=== PATIENT | male | born 1940 | race African-American/Black ===

== ENCOUNTER 2024-06-26 20:37 | Inpatient (IN) | payer OTHER, MEDICAID ==
[~2024-06-26] VITALS: Ht 188 cm; Wt 58.5 kg
[~2024-06-26 20:37] MED LIST: AMLO10TA80 MT; APIX2.5T MT; ASPI-1497 MT; HYDR100T11 MT; LIP40 MT; METO25TA6 PO; P20 MT; PRED10TA MT; PRED5TAB MT
[2024-06-26 20:50] VITALS: O2SAT 97
[2024-06-26 21:52] LABS: BASOPHILS % 1.6 % (0.0-2.0); EOSINOPHILS % 6.2 % (0.0-5.0); HEMATOCRIT. 36.2 % (42.0-52.0); HEMOGLOBIN. 12.2 g/dL (14.0-18.0); LYMPHOCYTES % 23.1 % (20.0-50.0); MEAN CORPUSCULAR HEMOGLOBIN 29.3 pg (28.0-32.0); MEAN CORPUSCULAR HGB CONC 33.7 g/dL (31.0-37.0); MEAN CORPUSCULAR VOLUME 86.8 fL (80.0-94.0); MEAN PLATELET VOLUME 8.9 fl (7.4-10.4); MONOCYTES % 11.2 % (2.0-8.0); NEUTROPHILS % 57.9 % (40.0-76.0); PLATELET 128 x1000/uL (130-400); RED BLOOD CELL COUNT 4.17 mill/uL (4.7-6.1); RED CELL DISTRIBUTION WIDTH 16.3 % (11.6-14.6); WHITE BLOOD COUNT 4.4 x1000/uL (4.5-11.0)
[2024-06-26] MEDS: HYDRALAZINE 20MG/ML VIAL IV NR (21:52)
[2024-06-26 21:55] LABS: POTASSIUM 4.2 mEq/L (3.5-5.1)
[2024-06-26 21:56] LABS: CALCIUM 9.1 mg/dL (8.7-10.4)
[2024-06-26 22:02] LABS: CREATININE 1.5 mg/dL (0.6-1.3)
[2024-06-26] MEDS: LABETALOL 5MG/ML 4ML INJ IV NR (22:14)
[2024-06-26] MEDS ORDERED: ONDANSETRON HCL 4MG/2ML INJ IV PRN (23:00)
[2024-06-26] MEDS ORDERED: ENOXAPARIN 40MG/0.4ML SYR SUBCUT SCH (23:00)
[2024-06-26] MEDS ORDERED: IPRATROPIUM/ALBUTEROL 0.5-3(2.5)MG/3ML NEB NEB PRN (23:00)
[2024-06-26] MEDS ORDERED: ACETAMINOPHEN 325MG TABLET PO PRN (23:00)
[2024-06-26] MEDS ORDERED: ZOLPIDEM TARTRATE 5MG TABLET PO PRN (23:00)
[2024-06-26] MEDS: AMLODIPINE 5MG TABLET PO SCH (23:34)
[2024-06-26] MEDS: METOPROLOL TARTRATE 25MG TABLET PO SCH (23:34)
[2024-06-27] MEDS: APIXABAN 2.5 MG TABLET PO SCH (00:43)
[2024-06-27] MEDS: CLONIDINE 0.1MG TABLET PO PRN (00:53)
[2024-06-27 09:00] VITALS: BP_SYST 140; BP_SYST 141; BP_DIAS 91; PULSE 62; PULSE 92; RESP 18; TEMP 36.78072; TEMP 36.8072; O2SAT 100
[2024-06-27] MEDS: ASPIRIN 81MG EC TABLET PO SCH (09:35)
[2024-06-27] MEDS: ATORVASTATIN CALCIUM 40MG TABLET PO SCH (09:38)
[2024-06-27 12:00] VITALS: BP 157/98; PULSE 68; RESP 18; TEMP 36.16956; O2SAT 100
[2024-06-27 12:18] LABS: BASOPHILS % 0.8 % (0.0-2.0); EOSINOPHILS % 4.4 % (0.0-5.0); HEMATOCRIT. 35.3 % (42.0-52.0); HEMOGLOBIN. 11.5 g/dL (14.0-18.0); LYMPHOCYTES % 23.1 % (20.0-50.0); MEAN CORPUSCULAR HEMOGLOBIN 28.1 pg (28.0-32.0); MEAN CORPUSCULAR HGB CONC 32.5 g/dL (31.0-37.0); MEAN CORPUSCULAR VOLUME 86.3 fL (80.0-94.0); MEAN PLATELET VOLUME 8.9 fl (7.4-10.4); MONOCYTES % 8.3 % (2.0-8.0); NEUTROPHILS % 63.4 % (40.0-76.0); PLATELET 130 x1000/uL (130-400); RED BLOOD CELL COUNT 4.09 mill/uL (4.7-6.1); RED CELL DISTRIBUTION WIDTH 16.3 % (11.6-14.6); WHITE BLOOD COUNT 4.9 x1000/uL (4.5-11.0)
[2024-06-27 12:27] LABS: CHLORIDE 107 mEq/L (98-107); POTASSIUM 4.1 mEq/L (3.5-5.1); SODIUM 140 mEq/L (136-145)
[2024-06-27 12:28] LABS: CALCIUM 9.1 mg/dL (8.7-10.4); CARBON DIOXIDE 26 mEq/L (21-32)
[2024-06-27 12:33] LABS: CREATININE 1.3 mg/dL (0.6-1.3); GLUCOSE 119 mg/dL (70-105); UREA NITROGEN BLOOD 15 mg/dL (9-23)
[2024-06-27 12:36] LABS: CREATINE KINASE MB FRACTION 1.9 ng/mL (0.5-3.6); TROPONIN I HIGH SENSITIVITY 29 ng/L (3.0-53)
[2024-06-27 12:37] LABS: CREATINE KINASE 92 IU/L (46-171)
[2024-06-27 16:00] VITALS: BP 128/92; PULSE 78; RESP 20; TEMP 36.114; O2SAT 100
[2024-06-27 19:03] LABS: CREATINE KINASE MB FRACTION 2.6 ng/mL (0.5-3.6)
[2024-06-27 20:00] VITALS: BP 197/116; PULSE 83; RESP 16; TEMP 36.22512; O2SAT 100
[2024-06-28] VITALS: BP 173/107; PULSE 68; RESP 16; O2SAT 98
[2024-06-28] MEDS ORDERED: CLONIDINE 0.1MG TABLET PO PRN (03:00)
[2024-06-28] MEDS: CLONIDINE 0.1MG TABLET PO NR (03:04)
[2024-06-28 04:00] VITALS: BP 137/91; PULSE 68; RESP 20; TEMP 35.0028; O2SAT 99
[2024-06-28 07:52] LABS: EOSINOPHILS % 4.6 % (0.0-5.0); HEMATOCRIT. 35.2 % (42.0-52.0); HEMOGLOBIN. 11.5 g/dL (14.0-18.0); LYMPHOCYTES % 28.5 % (20.0-50.0); MEAN CORPUSCULAR HEMOGLOBIN 28.5 pg (28.0-32.0); MEAN CORPUSCULAR HGB CONC 32.7 g/dL (31.0-37.0); MEAN CORPUSCULAR VOLUME 87.4 fL (80.0-94.0); MEAN PLATELET VOLUME 9.3 fl (7.4-10.4); MONOCYTES % 7.6 % (2.0-8.0); NEUTROPHILS % 58.3 % (40.0-76.0); PLATELET 131 x1000/uL (130-400); RED BLOOD CELL COUNT 4.02 mill/uL (4.7-6.1); RED CELL DISTRIBUTION WIDTH 16.2 % (11.6-14.6); WHITE BLOOD COUNT 4.5 x1000/uL (4.5-11.0)
[2024-06-28 08:06] LABS: CARBON DIOXIDE 27 mEq/L (21-32); CHLORIDE 106 mEq/L (98-107); POTASSIUM 4.6 mEq/L (3.5-5.1); SODIUM 139 mEq/L (136-145)
[2024-06-28 08:07] LABS: CALCIUM 8.9 mg/dL (8.7-10.4)
[2024-06-28 08:10] LABS: TROPONIN I HIGH SENSITIVITY 25 ng/L (3.0-53)
[2024-06-28 08:11] LABS: CREATININE 1.4 mg/dL (0.6-1.3)
[2024-06-28 08:12] LABS: GLUCOSE 85 mg/dL (70-105); TRIGLYCERIDE 66 mg/dL (0-150); UREA NITROGEN BLOOD 23 mg/dL (9-23)
[2024-06-28 08:13] LABS: CHOLESTEROL 143 mg/dL (<200); LDL CHOLESTEROL 62 mg/dL (5-100)
[2024-06-28 08:14] LABS: HDL CHOLESTEROL 61 mg/dL (>55)
[2024-06-28 12:00] VITALS: BP 164/110; PULSE 70; RESP 18; TEMP 37.05852; O2SAT 99
[2024-06-28 16:00] VITALS: BP 147/87; PULSE 67; RESP 18; TEMP 37.00296; O2SAT 98
[2024-06-28 20:00] VITALS: BP 147/92; PULSE 65; RESP 20; TEMP 36.28068; O2SAT 99
[2024-06-29] VITALS: BP 145/90; PULSE 62; RESP 19; TEMP 36.3918; O2SAT 98
[2024-06-29 04:00] VITALS: BP 151/92; PULSE 72; RESP 20; TEMP 36.33624; O2SAT 98
[2024-06-29 08:00] VITALS: BP 148/100; PULSE 63; RESP 20; TEMP 36.05844; O2SAT 98
[2024-06-29 12:12] VITALS: BP 142/88; PULSE 63; RESP 18; TEMP 37.16964; O2SAT 98
[2024-06-29] MEDS ORDERED: AMLODIPINE 10MG TABLET PO SCH (12:45)
[2024-06-29 13:59] VITALS: BP 142/88; PULSE 63; TEMP 98.9
[2024-06-29 16:25] VITALS: BP 115/87; PULSE 64; RESP 18; TEMP 37.00296; O2SAT 97
[2024-06-29] MEDS ORDERED: CLONIDINE 0.3MG TABLET PO PRN (17:58)
[2024-06-29 18:17] LABS: BASOPHILS % 1.6 % (0.0-2.0); EOSINOPHILS % 5.9 % (0.0-5.0); HEMOGLOBIN. 11.5 g/dL (14.0-18.0); LYMPHOCYTES % 29.1 % (20.0-50.0); MEAN CORPUSCULAR HEMOGLOBIN 28.5 pg (28.0-32.0); MEAN CORPUSCULAR HGB CONC 32.8 g/dL (31.0-37.0); MEAN CORPUSCULAR VOLUME 86.8 fL (80.0-94.0); MEAN PLATELET VOLUME 9.6 fl (7.4-10.4); MONOCYTES % 9.7 % (2.0-8.0); NEUTROPHILS % 53.7 % (40.0-76.0); PLATELET 146 x1000/uL (130-400); POTASSIUM 4.2 mEq/L (3.5-5.1); RED BLOOD CELL COUNT 4.03 mill/uL (4.7-6.1); RED CELL DISTRIBUTION WIDTH 16.2 % (11.6-14.6); WHITE BLOOD COUNT 4.8 x1000/uL (4.5-11.0)
[2024-06-29 18:19] LABS: CALCIUM 9.2 mg/dL (8.7-10.4)
[2024-06-29 18:23] LABS: CREATININE 1.6 mg/dL (0.6-1.3)
[2024-06-30] MEDS ORDERED: AMLODIPINE 10MG TABLET PO SCH (09:00)
== END 2024-06-29 16:55 | disposition home or self-care (01) | DRG 913 ==
LOC: ER 20:37 → 7WST 06-27 02:45
PROVIDERS: ADMIT Internal Medicine; ATTEND Internal Medicine
DX: S09.90XA Unspecified injury of head, initial encounter (principal); N17.0 Acute kidney failure with tubular necrosis; D64.9 Anemia, unspecified; I44.0 Atrioventricular block, first degree; I48.0 Paroxysmal atrial fibrillation; J44.9 Chronic obstructive pulmonary disease, unspecified; I10 Essential (primary) hypertension; E78.5 Hyperlipidemia, unspecified; F10.10 Alcohol abuse, uncomplicated; F17.210 Nicotine dependence, cigarettes, uncomplicated; Z79.01 Long term (current) use of anticoagulants; W18.30XA Fall on same level, unspecified, initial encounter; Y93.89 Activity, other specified; Y92.89 Other specified places as the place of occurrence of the external cause; Y99.8 Other external cause status
CPT/HCPCS: 36415; 80048; 80061; 82550; 82553; 83735; 84484; 85025; 93005; 93306; 93970; 97161; 99285; J0360; J3490